=== PATIENT | male | born 1975 ===

== ENCOUNTER 2016-12-13 11:02 | Emergency (ER) | payer OTHER ==
[2016-12-13] MEDS ORDERED: Diphtheria,Pertussis(Acell),Tetanus Vaccine 0.5 ML SDV IM ONE (11:25)
--- NOTE | 2016-12-13 11:40 | EDM.PDOC ---
ED HPI GENERAL MEDICAL PROBLEM - General Chief Complaint: Upper Extremity Injury/Pain Stated Complaint: LT HAND INJURY Time Seen by Provider: 12/13/16 11:20 Source of Information: Reports: Patient History Limitations: Reports: No Limitations - History of Present Illness INITIAL COMMENTS - FREE TEXT/NARRATIVE: 41-year-old male presents for evaluation treatment of the injury to the left second finger. Injury occurred around 0930 this morning. Patient was at work. Reports that the finger got smashed between a ladder and a piece of metal. He has a small open wound to the left hand second finger ventral middle phalanx. Bleeding has subsided prior to coming to the ER. He denies any numbness or tingling to the finger. He was he is able to move the finger and does not cause much pain. He has a significant amount of swelling and this has reduced his range of motion due to the swelling. No treatment prior to arrival in the ER. He is unsure of his last tetanus. Patient is right-handed. Onset: Today Location: Reports: Upper Extremity, Left Treatments ATTORNEY [employer]YER: Reports: Other (see below) Other Treatments ATTORNEY LAWYER: none - Related Data Allergies Allergy/AdvReac Type Severity Reaction Status Date / Time No Known Allergies Allergy Verified 12/13/16 11:13 Home Meds: Home Meds . [No Known Home Meds] 12/13/16 [History] Past Medical History - Past Health History Medical/Surgical History: Denies Medical/Surgical History Social & Family History - Tobacco Use Smoking Status *Q: Current Every Day Smoker Years of Tobacco use: 40 Packs/Tins Daily: 0.3 - Caffeine Use Caffeine Use: Reports: None - Recreational Drug Use Recreational Drug Use: No Review of Systems - Review of Systems Review Of Systems: See Below Musculoskeletal: Reports: Other (report left hand second finer swelling; no pain ) Skin: Reports: Wound (left hand 2nd finger middle phalnex ventral aspect 0.5cm open wound) Neurological: Denies: Numbness, Tingling ED EXAM, GENERAL - Physical Exam Exam: See Below Exam Limited By: No Limitations General Appearance: Alert, WD/WN, No Apparent Distress Respiratory/Chest: No Respiratory Distress Cardiovascular: Normal Peripheral Pulses Peripheral Pulses: 2+: Radial (L) Extremities: Non-Tender (left hand 2nd finger), Normal Capillary Refill, Other ( left hand 2nd finger swelling and decreased ROM due to swelling) Neurological: Alert, Oriented, Normal Cognition Psychiatric: Normal Affect, Normal Mood Skin Exam: Warm, Dry, Wound/Incision (0.5cm superficial laceraion to the left hand 2nd finger middle phalnex ventral side) Course - Vital Signs Last Recorded V/S: Last Vital Signs Temp 37.2 C 12/13/16 11:09 Pulse 88 12/13/16 11:09 Resp 20 12/13/16 11:09 BP 146/94 H 12/13/16 11:09 Pulse Ox 97 12/13/16 11:09 - Orders/Labs/Meds Orders: Active Orders 24 hr Category Date Time Status Vaccines to be Administered [RC] PER UNIT ROUTINE Care 12/13/16 11:26 Active Meds: Medications Discontinued Medications Generic Name Dose Route Start Last Admin Trade Name Freq PRN Reason Stop Dose Admin Diphtheria/Tetanus/Acell Pertussis 0.5 ml 12/13/16 11:25 12/13/16 11:38 Adacel IM 12/13/16 11:26 0.5 ml .ONCE ONE Administration - Radiology Interpretation Free Text/Narrative:: xray of the left hand 2nd finger shows no acute fractures or dislocations - Re-Assessments/Exams Free Text/Narrative Re-Assessment/Exam: 12/13/16 12:28 I reviewed the x-ray results with the patient. i will have nursing staff come and clean up his wound. Will place an aluminiform finger splint for protection. Educated this should get better with time within about 1-2 weeks. Will discharge home. Discharge instructions as documented. Departure - Departure Time of Disposition: 12:30 Disposition: Home, Self-Care 01 Condition: Good Clinical Impression: Finger injury, Laceration - Discharge Information Referrals: PCP,None [Primary Care Provider] - Forms: ED Department Discharge Additional Instructions: [id number] Tylenol or Motrin as needed for pain and symptom relief. Recommend icing the finger 3 to 4 times a day for about 10 minutes. Follow-up with occupational health if your symptoms are not much better within 2 weeks. Expect the swelling and discomfort to last for the next week. Finger splint as needed for protection and to allow healing. Recommend at least yane taping the fingers to allow for healing. Please return to the ER if your symptoms change or worsen. - My Orders Last 24 Hours: My Active Orders 12/13/16 11:26 Vaccines to be Administered [RC] PER UNIT ROUTINE - Assessment/Plan Last 24 Hours: My Active Orders 12/13/16 11:26 Vaccines to be Administered [RC] PER UNIT ROUTINE
--- NOTE | 2016-12-13 12:30 | CR ---
Left second finger: Four views centered to the left second finger were obtained. Comparison: No previous study. Soft tissue swelling is identified. Joint spaces are maintained. No acute fracture or other abnormality is seen. Impression: 1. Soft tissue swelling. No bony abnormality is seen on left second finger study. Diagnostic code #2
== END 2016-12-13 12:50 | disposition home or self-care (01) ==
LOC: JD.ED 11:02
DX: S61.211A Laceration without foreign body of left index finger without damage to nail, initial encounter (principal); W23.0XXA Caught, crushed, jammed, or pinched between moving objects, initial encounter; F17.210 Nicotine dependence, cigarettes, uncomplicated; Z23 Encounter for immunization
CPT/HCPCS: 73140-26-F1; 73140-F1; 90715; 99283; 99284-25